=== PATIENT | female | born 1960 | race African-American/Black ===

== ENCOUNTER 2019-08-22 12:18 | Inpatient (IN) | payer OTHER ==
[~2019-08-22] VITALS: Ht 160 cm; Wt 58.5 kg
--- NOTE | 2019-08-22 12:22 | NUR ---
ryder, from dialysis center, c/o sharp chest pain since yesterday 10/21 ps, radiating to back, pain in inspiration last HD , to ER bed 9, hooked to monitor, changed to hosp gown, warm blanket provided, awaiting md cooper.
--- NOTE | 2019-08-22 12:26 | NUR ---
DR ARZOLA AT BEDSIDE FOR EVAL.
[2019-08-22] MEDS ORDERED: ASPIRIN 325 MG TABLET PO ONE (12:30)
[2019-08-22] MEDS ORDERED: ASPIRIN 325 MG TABLET ONE (12:40)
[2019-08-22 12:50] LABS: WHITE BLOOD COUNT (AUTO) 3.6 K/uL (4.3-11.0)
[2019-08-22 12:51] LABS: BASOPHILS % (AUTO) 1.2 % (0.0-2.0); EOSINOPHILS % (AUTO) 3.5 % (0.0-6.0); HEMATOCRIT 36 % (33-45); HEMOGLOBIN 11.1 g/dL (11.5-14.8); LYMPHOCYTES # (AUTO) 0.9 /CMM (0.8-4.8); MEAN CORPUSCULAR HGB CONC 31 g/dl (31.0-36.0); MEAN CORPUSCULAR VOLUME 89 fL (82-100); MONOCYTES # (AUTO) 0.6 /CMM (0.1-1.30); MONOCYTES % (AUTO) 16.9 % (2.0-12.0); NEUTROPHILS % (AUTO) 54.4 % (43.0-81.0); PLATELET COUNT (AUTO) 179 /CMM (150-450); RED BLOOD CELL COUNT(AUTO) 3.99 MIL/uL (4.0-5.2)
[2019-08-22 12:57] LABS: CALCIUM, SERUM 8.8 mg/dL (8.5-10.1); CARBON DIOXIDE 27 mmol/L (21-32); CHLORIDE 102 mmol/L (98-107); GLUCOSE 166 mg/dL (74-106); SODIUM SERUM 136 mmol/L (136-145); UREA NITROGEN, BLOOD 53 mg/dL (7-18)
[2019-08-22 12:59] LABS: CREATININE 7.8 mg/dL (0.6-1.3)
[2019-08-22] MEDS ORDERED: INSULIN REGULAR, HUMAN 100 UNIT/ML 10 ML VIAL IV ONE (13:00)
[2019-08-22] MEDS ORDERED: SODIUM BICARBONATE SYR 50 MEQ/50 ML DISP.SYRIN IV ONE (13:00)
[2019-08-22] MEDS ORDERED: SODIUM POLYSTYRENE SULFONATE 15 G/60 ML BOTTLE PO ONE (13:00)
[2019-08-22] MEDS ORDERED: DEXTROSE 50%-WATER 50 ML DISP.SYRIN IV ONE (13:00)
[2019-08-22 13:10] LABS: ALANINE AMINOTRANSFERASE 19 U/L (12-78); ALBUMIN 3.2 g/dL (3.4-5.0); ALKALINE PHOSPHATASE 144 U/L (46-116); ASPARTATE AMINOTRANSFERASE 40 U/L (15-37); B-TYPE NATRIURETIC PEPTIDE 1761 PG/ML (0-125); BILIRUBIN,DIRECT 0.1 mg/dL (0.0-0.2); BILIRUBIN,TOTAL 0.4 mg/dL (0.2-1.0); TOTAL PROTEIN, SERUM 9.1 g/dL (6.4-8.2)
[2019-08-22] MEDS ORDERED: SODIUM POLYSTYRENE SULFONATE 15 G/60 ML BOTTLE ONE ×2 (13:10→13:23)
[2019-08-22] MEDS ORDERED: INSULIN REGULAR, HUMAN 100 UNIT/ML 10 ML VIAL ONE (13:10)
[2019-08-22] MEDS ORDERED: DEXTROSE 50%-WATER 50 ML DISP.SYRIN ONE (13:10)
[2019-08-22] MEDS ORDERED: SODIUM BICARBONATE SYR 50 MEQ/50 ML DISP.SYRIN ONE (13:10)
--- NOTE | 2019-08-22 13:55 | NUR ---
DR. BEASLEY FROM [facility] CALLED. PT HAS BEEN ACCEPTED. AWAITING ACCEPTANCE INFORMATION FROM CM.
--- NOTE | 2019-08-22 14:48 | NUR ---
GOT OFF THE PHONE WITH JEREMIAS HARO FROM [facility]. PT HAS BEEN ACCEPTED TO [facility]. SHE WILL CALL BACK WITHIN 90 MINUTES WITH TRANSFER INFO. IF NO INFO PROVIDED BY 1600 WILL ADMIT HERE.
--- NOTE | 2019-08-22 15:26 | NUR ---
LIZABETH [phone].
--- NOTE | 2019-08-22 16:50 | NUR ---
patient had bowel movement, cleaned patient, pull-up placed, changed hosp gown and linens. hooked to monitor. will contiue to monitor accordingly.
--- NOTE | 2019-08-22 17:05 | NUR ---
CALLED HOUSE SUP FOR TELE BED.
--- NOTE | 2019-08-22 17:20 | NUR ---
BED ASSIGNED: 310-1
--- NOTE | 2019-08-22 17:34 | NUR ---
REPORT GIVEN TO JHONATAN CARMONA OF TELE UNIT
--- NOTE | 2019-08-22 17:42 | NUR ---
Luh hernandez in [facility] - 08/22/19 at 1745 by JHONY PT CAME FROM [facility] [phone] SPOKE TO SARIKA MONSALVE
--- NOTE | 2019-08-22 17:46 | NUR ---
PT CAME FROM [facility] [phone] SPOKE TO SARIKA DEALER ANALYST ADDRESS: [id number] [place] [address]
[2019-08-22] MEDS ORDERED: ONDANSETRON HCL/PF 4 MG/2 ML VIAL IVP PRN (18:00)
[2019-08-22] MEDS ORDERED: DEXTROSE 50%-WATER 50 ML DISP.SYRIN IV PRN (18:00)
[2019-08-22] MEDS ORDERED: TEMAZEPAM 15 MG CAPSULE PO PRN (18:00)
[2019-08-22] MEDS ORDERED: MORPHINE SULFATE INJ 2 MG/ML DISP.SYRIN IV PRN (18:00)
[2019-08-22] MEDS ORDERED: MAG HYDROX/AL HYDROX/SIMETH 30 ML UDC PO PRN (18:00)
[2019-08-22] MEDS ORDERED: MAGNESIUM HYDROXIDE 30 ML UDC PO PRN (18:00)
[2019-08-22] MEDS ORDERED: Z GUARD REMEDY 2 OZ OINT TP PRN (18:00)
[2019-08-22] MEDS ORDERED: NITROGLYCERIN 0.4 MG/TAB BOTTLE SL PRN (18:00)
[2019-08-22] MEDS ORDERED: HYDROCODONE/APAP 5/325MG 1 EACH TABLET PO PRN (18:00)
[2019-08-22] MEDS ORDERED: ACETAMINOPHEN 325 MG TABLET PO PRN (18:00)
[2019-08-22] MEDS ORDERED: LEVE500T9 PO (18:06)
[2019-08-22] MEDS ORDERED: DIPH50CA4 PO (18:06)
[2019-08-22] MEDS ORDERED: GABA-532 PO (18:06)
[2019-08-22] MEDS ORDERED: DOLU50TA PO (18:06)
[2019-08-22] MEDS ORDERED: BRIM5DRO3 LEFTEYE (18:06)
[2019-08-22] MEDS ORDERED: LATA2.5D7 OP (18:06)
[2019-08-22] MEDS ORDERED: BUPR1FIL3 SL (18:06)
[2019-08-22] MEDS ORDERED: TIMO5DRO31 OP (18:06)
[2019-08-22] MEDS ORDERED: METO-295 PO (18:06)
[2019-08-22] MEDS ORDERED: SENN-175 PO (18:06)
[2019-08-22] MEDS ORDERED: FOLI0.8C PO (18:06)
[2019-08-22] MEDS ORDERED: CHOL200074 PO (18:06)
[2019-08-22] MEDS ORDERED: DARU1TAB PO (18:06)
--- NOTE | 2019-08-22 19:00 | NUR ---
CUSTODIAL SUPERVISOR NOTES Received pt from MATHEW Almendarez. Pt came to Tele 310-1 around 1800. On RA, with complaints of pain on chest. COVID test swab done by the outgoing RN. Put on tele monitor, NSR noted. VTE score of 4, put on SCD BLE as appropriate. Reviewed chart for orders. On fall and aspiration precautions. Call light within easy reach. Will continue to monitor accordingly.
[2019-08-22 20:00] VITALS: BP 141/68
--- NOTE | 2019-08-22 20:12 | NUR ---
RN NOTES Patient claimed she is taking Orange 10mg BID and Benadryl PO unrecalled dosage. Verified to patient about her allergic to acetaminophen and tramadol. Per patient, she had taken acetaminophen before without any problem but with tramadol patient claimed she had disorientation. Will relay to MD for med recon.
[2019-08-22 20:43] VITALS: BP 141/68
[2019-08-22] MEDS: HYDROCODONE/APAP 10/325MG 1 EA TABLET PO PRN (21:09)
[2019-08-22] MEDS: diphenhydrAMINE HCL 25 MG CAPSULE PO PRN (21:09)
[2019-08-22] MEDS: BLOOD SUGAR DIAGNOSTIC 1 EACH STRIP IN SCH (21:10)
[2019-08-22] MEDS: INSULIN REGULAR, HUMAN 100 UNIT/ML 3 ML VIAL SQ PRN (21:22)
[2019-08-23] VITALS: BP 141/76
--- NOTE | 2019-08-23 01:03 | NUR ---
RN NOTES Endorsed to MATHEW Burr for BRUNO.
--- NOTE | 2019-08-23 01:05 | NUR ---
RN NOTES RECEIVED REPORT FROM MATHEW CLEMENT. ASSESSED PATIENT. ASLEEP RESTING COMFORTABLY, SAFETY MEASURES INPLACE ASPIRATION PRECAUTION EMPHASIZED. CALL LIGHT WITHIN EASY REACH. ALL NEEDS ANTICIPATED. WILL CONTINUE TO MONITOR ACCORDINGLY.
[2019-08-23 04:01] VITALS: BP 144/76
[2019-08-23 05:56] LABS: BASOPHILS % (AUTO) 0.7 % (0.0-2.0); EOSINOPHILS % (AUTO) 2.4 % (0.0-6.0); HEMATOCRIT 32 % (33-45); HEMOGLOBIN 9.8 g/dL (11.5-14.8); LYMPHOCYTES # (AUTO) 1.2 /CMM (0.8-4.8); MEAN CORPUSCULAR HGB CONC 30 g/dl (31.0-36.0); MEAN CORPUSCULAR VOLUME 90 fL (82-100); MONOCYTES # (AUTO) 0.9 /CMM (0.1-1.30); MONOCYTES % (AUTO) 12.1 % (2.0-12.0); NEUTROPHILS # (AUTO) 4.8 /CMM (1.8-8.9); NEUTROPHILS % (AUTO) 67.8 % (43.0-81.0); PLATELET COUNT (AUTO) 155 /CMM (150-450); RED BLOOD CELL COUNT(AUTO) 3.58 MIL/uL (4.0-5.2); WHITE BLOOD COUNT (AUTO) 7.1 K/uL (4.3-11.0)
--- NOTE | 2019-08-23 06:12 | NUR ---
RN NOTES ABLE TO REST AND SLEPT WITH LONG INTERVALS. ASLEEP RESTING COMFORTABLY, SAFETY MEASURES IN PLACE ASPIRATION PRECAUTION EMPHASIZED. CALL LIGHT WITHIN EASY REACH. ALL NEEDS ANTICIPATED. WILL WILL ENDORSE TO AM NURSE FOR CONTINUITY OF CARE.
[2019-08-23 06:28] LABS: CARBON DIOXIDE 24 mmol/L (21-32); CHLORIDE 101 mmol/L (98-107); GLUCOSE 153 mg/dL (74-106); MAGNESIUM 2.9 mg/dL (1.8-2.4); PHOSPHORUS 5.8 mg/dL (2.5-4.9); POTASSIUM 4.7 mmol/L (3.5-5.1); SODIUM SERUM 135 mmol/L (136-145); UREA NITROGEN, BLOOD 60 mg/dL (7-18)
[2019-08-23 06:31] LABS: HDL CHOLESTEROL 36 mg/dL (40-60); LDL 74 mg/dL (0-99); THYROID STIMULATING HORMONE 0.449 uIU/mL (0.358-3.74); TRIGLYCERIDES 45 mg/dL (30-150)
[2019-08-23 06:33] LABS: CREATININE 8.6 mg/dL (0.6-1.3)
[2019-08-23] MEDS: BLOOD SUGAR DIAGNOSTIC 1 EACH STRIP IN SCH ×4 (07:01→21:59)
[2019-08-23] MEDS: HYDROCODONE/APAP 10/325MG 1 EA TABLET PO PRN (07:07)
[2019-08-23 07:32] LABS: CHOLESTEROL 113 mg/dL (<200)
[2019-08-23] MEDS: PANTOPRAZOLE 40 MG TABLET.DR PO SCH (07:51)
[2019-08-23 08:00] VITALS: BP 158/80
--- NOTE | 2019-08-23 08:10 | NUR ---
DARIEL RN OPENING NOTES RECEIVED PT RESTING . ALERT AND ORIENTED X3. PT IS ON RA. PT'S SKIN INTACT. PT LAC FLUSHED WELL. BED IN LOWEST POSITION. RAILS ARE UP X2. CALL LIGHT WITHIN REACH. WILL CONTINUE TO MONITOR
[2019-08-23] MEDS: CARVEDILOL 6.25 MG TABLET PO SCH ×2 (08:52→21:26)
[2019-08-23] MEDS: HEPARIN SODIUM, PORCINE 5000 UNITS/1 ML VIAL SQ SCH ×2 (08:58→21:37)
--- NOTE | 2019-08-23 09:00 | NUR ---
DARIEL RN NOTES SIGNED CONSENT FOR HEMO DIALYSIS, PLACED IN CHART. DIALYSIS NURSE ON THE BED SITE.
[2019-08-23] MEDS: ASPIRIN 81 MG TAB.CHEW PO SCH (09:14)
--- NOTE | 2019-08-23 11:30 | NUR ---
DARIEL RN NOTES DIALYSIS NURSE TOOK 2 L OUT
[2019-08-23 12:00] VITALS: BP 151/74
[2019-08-23] MEDS ORDERED: diphenhydrAMINE HCL ELIX 25 MG/10 ML UDC ONE (12:36)
--- NOTE | 2019-08-23 14:06 | NUR ---
DARIEL RN NOTES PT DANIEL IS ON THE BED SITE
[2019-08-23 16:00] VITALS: BP 139/68
[2019-08-23] MEDS: HYDROCODONE/APAP 5/325MG 1 EACH TABLET PO PRN (17:55)
[2019-08-23] MEDS: GLUCERNA SHAKE 237 ML CAN PO SCH (18:19)
--- NOTE | 2019-08-23 18:26 | NUR ---
DARIEL RN CLOSING NOTES PT IS RESTING IN BED. ALERT AND ORIENTED X3. PT IS ON RA. PT'S SKIN INTACT. PT LAC FLUSHED WELL. BED IN LOWEST POSITION. RAILS ARE UP X2. CALL LIGHT WITHIN REACH. SAFETY MEASUREMENTS ARE IMPLEMENTED. PT ALL NEEDS ARE MET. PT IS CLEAN AND DRY. NO ACUTE CHANGES ON MY SHIFT. WILL ENDORSE TO NIGHTSHIFT NURSE FOR BRUNO.
--- NOTE | 2019-08-23 19:40 | NUR ---
TROUBLE LOCATOR TEST DESK OPENING NOTES PATIENT RECEIVED RESTING IN BED COMFORTABLY; AWAKE, A/OX2-3; BREATHING EVEN AND UNLABORED; PATIENT TOLERATING ROOM AIR WELL; NO SOB NOTED; TELE MONITOR ATTACHED, READS NSR 88BPM; L EYE BLINDNESS; PATIENT REQUESTING TO SPEAK WITH HER DAUGHTER; L AC # 22 SL INTACT AND PATENT; FLUSHING WELL; NO S/S OF REDNESS OR INFILTRATION NOTED; R CHEST PORTACATH IN PLACE; PER AM SHIFT, BLOOD SUGAR HAS BEEN 80S - 120S, NO INSULIN COVERAGE NEEDED; WILL MONITOR; ISOLATION PRECAUTIONS IMPLEMENTED; SAFETY PRECAUTIONS IMPLEMENTED; BED LOCKED IN LOW POSITION; BED LOCKED IN LOW POSITION; SIDE RAILS X2; CALL LIGHT WITHIN REACH; WILL CONT TO MONITOR
[2019-08-23 20:00] VITALS: BP_SYST 116; BP_SYST 139; BP_DIAS 73; BP_DIAS 83
[2019-08-24] VITALS (7 sets, daily range): BP systolic 145–167; BP diastolic 71–85
[2019-08-24] MEDS: HYDROCODONE/APAP 5/325MG 1 EACH TABLET PO PRN ×3 (02:56→18:20)
--- NOTE | 2019-08-24 03:02 | NUR ---
VEHICLE ASSEMBLY INSPECTOR NOTES PATIENT COMPLAINT OF GENERALIZED BODY PAINS 10/21; PATIENT REQUESTED TO USE THE RESTROOM; TOLERATED WALKING TO RESTROOM WELL, WITH STAND BY ASSIST AND WALKER; PATIENT REQUESTING NORCO PO FOR PAIN MANAGEMENT; VITAL SIGNS STABLE; NORCO ADMINISTERED PER MD ORDER; WILL CONT TO MONITOR
[2019-08-24 06:53] LABS: BASOPHILS % (AUTO) 0.9 % (0.0-2.0); EOSINOPHILS % (AUTO) 7.1 % (0.0-6.0); HEMATOCRIT 30 % (33-45); HEMOGLOBIN 9.5 g/dL (11.5-14.8); LYMPHOCYTES # (AUTO) 0.8 /CMM (0.8-4.8); LYMPHOCYTES % (AUTO) 26.5 % (20.0-44.0); MEAN CORPUSCULAR HGB CONC 32 g/dl (31.0-36.0); MEAN CORPUSCULAR VOLUME 88 fL (82-100); MONOCYTES # (AUTO) 0.5 /CMM (0.1-1.30); NEUTROPHILS # (AUTO) 1.4 /CMM (1.8-8.9); NEUTROPHILS % (AUTO) 47.5 % (43.0-81.0); PLATELET COUNT (AUTO) 160 /CMM (150-450); RED BLOOD CELL COUNT(AUTO) 3.43 MIL/uL (4.0-5.2)
[2019-08-24] MEDS: BLOOD SUGAR DIAGNOSTIC 1 EACH STRIP IN SCH ×4 (07:00→21:21)
[2019-08-24 07:14] LABS: ALANINE AMINOTRANSFERASE 15 U/L (12-78); ALBUMIN 2.7 g/dL (3.4-5.0); ALKALINE PHOSPHATASE 111 U/L (46-116); ASPARTATE AMINOTRANSFERASE 16 U/L (15-37); BILIRUBIN,TOTAL 0.2 mg/dL (0.2-1.0); CALCIUM, SERUM 8.3 mg/dL (8.5-10.1); CARBON DIOXIDE 28 mmol/L (21-32); CHLORIDE 99 mmol/L (98-107); GLUCOSE 86 mg/dL (74-106); MAGNESIUM 2.5 mg/dL (1.8-2.4); PHOSPHORUS 5.4 mg/dL (2.5-4.9); SODIUM SERUM 134 mmol/L (136-145); TOTAL PROTEIN, SERUM 7.7 g/dL (6.4-8.2); UREA NITROGEN, BLOOD 41 mg/dL (7-18)
--- NOTE | 2019-08-24 07:34 | NUR ---
CULINARY DIRECTOR CLOSING NOTES PATIENT RESTING IN BED COMFORTABLY; A/OX2-3; BREATHING EVEN AND UNLABORED; NO SOB NOTED; TOLERATING ROOM AIR WELL; TELE MONITOR READS NSR; ALL NEEDS RENDERED; ISOLATION PRECAUTIONS MAINTAINED; PATIENT ABLE TO MAKE NEEDS KNOWN; SAFETY PRECAUTIONS IMPLEMENTED; BED LOCKED IN LOW POSITION; SIDE RAILS X2; CALL LIGHT WITHIN REACH; WILL ENDORSE BRUNO TO ONCOMING SHIFT
[2019-08-24] MEDS: diphenhydrAMINE HCL 25 MG CAPSULE PO PRN (08:05)
[2019-08-24] MEDS: CARVEDILOL 6.25 MG TABLET PO SCH ×3 (08:05→21:02)
[2019-08-24] MEDS: PANTOPRAZOLE 40 MG TABLET.DR PO SCH (08:06)
[2019-08-24] MEDS: ASPIRIN 81 MG TAB.CHEW PO SCH (08:06)
[2019-08-24] MEDS: GLUCERNA SHAKE 237 ML CAN PO SCH ×2 (08:08→17:00)
[2019-08-24] MEDS ORDERED: METOCLOPRAMIDE HCL 10 MG TABLET PO PRN (09:00)
--- NOTE | 2019-08-24 09:20 | NUR ---
cassandra concrete block mason: notes nica (pharmacist) called and informed me if family can bring her hiv meds. informed nica that she came from [facility]. [facility] notified, spoke to phyllis and will bring her hiv meds this afternoon. Addendum: 08/24/19 at 0923 by HESHAM TOBIAS SENIOR POLICY ASSOCIATE correction on above pharmacist name: spoke to dereck instead of nica.
[2019-08-24] MEDS: GABAPENTIN 100 MG CAPSULE PO SCH ×2 (09:24→17:20)
[2019-08-24] MEDS: CHOLECALCIFEROL 1,000 UNIT TABLET (VIT D3) PO SCH (09:24)
[2019-08-24] MEDS: LEVETIRACETAM (250 MG) 250 MG TABLET PO SCH ×2 (09:24→21:02)
[2019-08-24] MEDS: FOLIC ACID 1 MG TABLET PO SCH (09:24)
[2019-08-24] MEDS: HEPARIN SODIUM, PORCINE 5000 UNITS/1 ML VIAL SQ SCH ×2 (09:24→21:03)
--- NOTE | 2019-08-24 09:25 | NUR ---
m/s finished goods inspector: notes given the balance of 6.25mg of coreg. pt received coreg 6.25mg earlier today.
[2019-08-24] MEDS ORDERED: CARVEDILOL 6.25 MG TABLET PO ONE (09:30)
--- NOTE | 2019-08-24 10:00 | NUR ---
m/s technology engineer: notes offered am care, but pt wants it later. instructed to call for assistance. will continue to monitor.
[2019-08-24] MEDS: TIMOLOL MALEATE/PF 0.25% 1 DROP DROPERETTE EACHEYE SCH ×2 (11:45→17:23)
[2019-08-24] MEDS: BRIMONIDINE TARTRATE OPHT SOLN 5 ML BOTTLE LEFTEYE SCH (11:45)
--- NOTE | 2019-08-24 12:27 | NUR ---
m/s bowl sander: notes c/o 08/20 generalized, medicated with norco 1 tab po as ordered. instructed to call for assistance. needs attended. will continue to monitor.
--- NOTE | 2019-08-24 13:27 | NUR ---
m/s plant attendant or assistant operator: notes pt sounds asleep. no distress noted. call light within reach.
[2019-08-24] MEDS: TIVICAY 50 MG PO SCH (15:19)
[2019-08-24] MEDS: PREZCOBIX PO SCH (15:19)
--- NOTE | 2019-08-24 16:00 | NUR ---
m/s sound mixer: notes afternoon care rendered by transportation job titles. kept clean and dry.
--- NOTE | 2019-08-24 18:20 | NUR ---
m/s senior php developer: notes c/o 08/20 generalized, medicated with norco 1 tab po as ordered. instructed to call for assistance. needs attended. will continue to monitor.
--- NOTE | 2019-08-24 19:00 | NUR ---
m/s parts manager: notes bedside report given to talon (rn) for continuity of care.
--- NOTE | 2019-08-24 19:37 | NUR ---
FURNITURE RESTORER OPENING NOTES RECEIVED PATIENT RESTING IN BED COMFORTABLY; A/OX2-3; BREATHING EVEN AND UNLABORED; NO SOB NOTED; PATIENT TOLERATING ROOM AIR WELL; TELE MONITOR READS NSR; L AC # 22 SL INTACT AND PATENT; R CHEST HD CATH; ISOLATION PRECAUTIONS MAINTAINED, STILL AWAITING COVID RESULTS; PER AM SHIFT, AWAITING FOR COVID RESULTS PRIOR TO RETURN TO BOARD AND CARE; SAFETY PRECAUTIONS IMPLEMENTED; BED LOCKED IN LOW POSITION; SIDE RAILSX2; CALL LIGHT WITHIN REACH; WILL CONT TO MONITOR
[2019-08-24] MEDS: SENNOSIDES 8.6 MG TABLET PO SCH (21:02)
[2019-08-24] MEDS: MUPIROCIN OINT 2% 22 GM TUBE SCH (21:03)
[2019-08-24] MEDS: LATANOPROST EYE DROP 0.005% 2.5 ML BOTTLE OP SCH (21:22)
[2019-08-24] MEDS: diphenhydrAMINE HCL 50 MG CAPSULE PO PRN (22:01)
--- NOTE | 2019-08-24 22:30 | NUR ---
BAKERY HELPER NOTES PATIENT REQUESTING BENADRYL D/T ITCHING; PATIENT REPORTED HER HEAD FEELS ITCHY; BENADRYL GIVEN ADMINISTERED PER MD ORDER; WILL CONT TO MONITOR
[2019-08-25] VITALS: BP 151/77
[2019-08-25 04:00] VITALS: BP 120/68
[2019-08-25] MEDS: BLOOD SUGAR DIAGNOSTIC 1 EACH STRIP IN SCH ×4 (06:31→21:49)
--- NOTE | 2019-08-25 06:40 | NUR ---
MELTER SUPERVISOR OPEN HEARTH FURNACE CLOSING NOTES PATIENT RESTING IN BED COMFORTABLY; A/OX2-3; PATIENT SLEEPY BUT EASILY AROUSABLE TO NAME AND LIGHT STIMULI; BREATHING EVEN AND UNLABORED; NO SOB NOTED; TOLERATING ROOM AIR WELL; TELE MONITOR READS NSR; ALL NEEDS RENDERED; ISOLATION PRECAUTIONS MAINTAINED; PATIENT ABLE TO MAKE NEEDS KNOWN; SAFETY PRECAUTIONS IMPLEMENTED; BED LOCKED IN LOW POSITION; SIDE RAILS X2; CALL LIGHT WITHIN REACH; WILL ENDORSE BRUNO TO ONCOMING SHIFT
[2019-08-25] MEDS: HYDROCODONE/APAP 5/325MG 1 EACH TABLET PO PRN ×3 (07:46→21:04)
[2019-08-25] MEDS: PANTOPRAZOLE 40 MG TABLET.DR PO SCH (07:46)
[2019-08-25 08:00] VITALS: BP 160/76
--- NOTE | 2019-08-25 08:00 | NUR ---
tele support services manager: initial assessment received pt in bed awake, a/ox3. pt for d'c planning, awaiting for covid result. pt for hd tx today and made aware. no distress noted. will continue to monitor.
[2019-08-25] MEDS: PREZCOBIX PO SCH (08:26)
[2019-08-25] MEDS: CHOLECALCIFEROL 1,000 UNIT TABLET (VIT D3) PO SCH (08:26)
[2019-08-25] MEDS: MUPIROCIN OINT 2% 22 GM TUBE SCH ×2 (08:27→21:56)
[2019-08-25] MEDS: ASPIRIN 81 MG TAB.CHEW PO SCH (08:27)
[2019-08-25] MEDS: TIVICAY 50 MG PO SCH (08:27)
[2019-08-25] MEDS: FOLIC ACID 1 MG TABLET PO SCH (08:27)
[2019-08-25] MEDS: GABAPENTIN 100 MG CAPSULE PO SCH ×2 (08:27→17:04)
[2019-08-25] MEDS: LEVETIRACETAM (250 MG) 250 MG TABLET PO SCH ×2 (08:27→21:21)
[2019-08-25] MEDS: CARVEDILOL 6.25 MG TABLET PO SCH ×2 (08:28→21:22)
[2019-08-25] MEDS: HEPARIN SODIUM, PORCINE 5000 UNITS/1 ML VIAL SQ SCH ×2 (08:29→21:26)
[2019-08-25] MEDS: BRIMONIDINE TARTRATE OPHT SOLN 5 ML BOTTLE LEFTEYE SCH (08:34)
[2019-08-25] MEDS: GLUCERNA SHAKE 237 ML CAN PO SCH ×2 (08:34→16:30)
[2019-08-25] MEDS: TIMOLOL MALEATE/PF 0.25% 1 DROP DROPERETTE EACHEYE SCH ×2 (08:36→17:00)
[2019-08-25] MEDS: hydrALAZINE HCL 50 MG TABLET PO SCH ×3 (10:30→17:28)
--- NOTE | 2019-08-25 10:30 | NUR ---
tele loft worker apprentice: notes hydralazine held due to hd tx today.
--- NOTE | 2019-08-25 10:40 | NUR ---
m/s protective service specialist: notes covid resulted which is negative. cn made aware. pt made aware.
--- NOTE | 2019-08-25 13:17 | NUR ---
m/s poultry veterinarian: notes hydralazine held due to hd tx today.
--- NOTE | 2019-08-25 13:30 | NUR ---
m/s job compositor: notes pt's correctional casework specialist called and wanted to speak with pt, call transfer to room.
--- NOTE | 2019-08-25 13:41 | NUR ---
m/s document improvement specialist: notes phyllis (admin of [facility]) called and wanted to speak with pt, call transfer to pt.
--- NOTE | 2019-08-25 15:30 | NUR ---
m/s molding press operator: notes ede (hd nurse) here and started treatment at this time. call light within reach. will continue to monitor.
[2019-08-25 16:00] VITALS: BP 144/76
--- NOTE | 2019-08-25 17:25 | NUR ---
m/s fast food sales assistant: notes hd completed with 2 liters removed per ede (hd nurse). dinner served. due meds given. needs attended. will continue to monitor.
--- NOTE | 2019-08-25 19:10 | NUR ---
m/s technical training manager: notes report given to josias (megan) for continuity of care.
--- NOTE | 2019-08-25 19:48 | NUR ---
MSRN RECEIVED FULLY AWAKE, APPEARS TO BE IN GOOD SPIRITS. NO COMPLAINTS MADE AT THIS TIME. NO NEEDS MADE. APPEARS COMFORTABLE. REMINDED TO CALL STAFF FOR ANY ASSISTANCE OR DISCOMFORTS, CALL LIGHT WITHIN REACH.SAFETY PRECAUTIONS EMPHASIZED.
[2019-08-25 20:00] VITALS: BP 145/83
[2019-08-25] MEDS: LATANOPROST EYE DROP 0.005% 2.5 ML BOTTLE OP SCH (21:28)
[2019-08-25] MEDS: SENNOSIDES 8.6 MG TABLET PO SCH (21:49)
--- NOTE | 2019-08-25 22:00 | NUR ---
MSRN DUE MEDS ADMINISTERED, BS WAS 131, COVERED WITH 2 UNITS OF REGULAR INSULIN SQ PER SLIDING SCALE.. SNACKS PROVIDED.
[2019-08-25] MEDS: INSULIN REGULAR, HUMAN 100 UNIT/ML 3 ML VIAL SQ PRN (22:08)
[2019-08-26] MEDS: HYDROCODONE/APAP 5/325MG 1 EACH TABLET PO PRN ×4 (03:17→22:52)
--- NOTE | 2019-08-26 03:19 | NUR ---
MSRN VERBALIZES LEFT EYE PAIN,LEVEL NINE NORCO ADMINISTERED ORDERED. BEDREST INSTRUCTED
[2019-08-26] MEDS: INSULIN REGULAR, HUMAN 100 UNIT/ML 3 ML VIAL SQ PRN ×2 (06:38→16:39)
--- NOTE | 2019-08-26 06:54 | NUR ---
MORN BLOOD SUGAR WAS 142 COVERED WITH REGULAR INSULIN SQ PER SLIDING SCALE.
--- NOTE | 2019-08-26 07:40 | NUR ---
MS RN OPENING NOTE PATIENT IN BED RESTING COMFORTABLY. PATIENT IN NO ACUTE DISTRESS. NO SOB NOTED. PATIENT BREATHING IS EVEN AND UNLABORED. PATIENT BED ALARM IS ON. SAFETY PRECAUTIONS IN PLACE. PATIENT BLOOD SUGAR WAS CHECKED AT 142 PER GRIFFIN CARMONA AND COVERED WITH 2 UNITS REGULAR INSULIN FOR 0730 AM CHECK. PATIENT BED IS LOCKED AND IN LOWEST POSITION. CALL LIGHT WITHIN REACH. WILL CONTINUE TO MONITOR.
[2019-08-26] MEDS: BLOOD SUGAR DIAGNOSTIC 1 EACH STRIP IN SCH ×4 (07:43→22:08)
[2019-08-26 07:53] LABS: BASOPHILS % (AUTO) 0.7 % (0.0-2.0); EOSINOPHILS % (AUTO) 5.8 % (0.0-6.0); HEMATOCRIT 29 % (33-45); LYMPHOCYTES # (AUTO) 0.8 /CMM (0.8-4.8); LYMPHOCYTES % (AUTO) 30.3 % (20.0-44.0); MEAN CORPUSCULAR HGB CONC 31 g/dl (31.0-36.0); MEAN CORPUSCULAR VOLUME 89 fL (82-100); MONOCYTES # (AUTO) 0.4 /CMM (0.1-1.30); MONOCYTES % (AUTO) 17.5 % (2.0-12.0); NEUTROPHILS # (AUTO) 1.1 /CMM (1.8-8.9); NEUTROPHILS % (AUTO) 45.7 % (43.0-81.0); PLATELET COUNT (AUTO) 144 /CMM (150-450); RED BLOOD CELL COUNT(AUTO) 3.27 MIL/uL (4.0-5.2); WHITE BLOOD COUNT (AUTO) 2.5 K/uL (4.3-11.0)
[2019-08-26 08:00] VITALS: BP 153/72
[2019-08-26 08:01] LABS: CALCIUM, SERUM 7.7 mg/dL (8.5-10.1); CREATININE 6.4 mg/dL (0.6-1.3); MAGNESIUM 2.6 mg/dL (1.8-2.4); PHOSPHORUS 4.3 mg/dL (2.5-4.9); POTASSIUM 4.1 mmol/L (3.5-5.1)
[2019-08-26] MEDS: BRIMONIDINE TARTRATE OPHT SOLN 5 ML BOTTLE LEFTEYE SCH (08:17)
[2019-08-26] MEDS: MUPIROCIN OINT 2% 22 GM TUBE SCH ×2 (08:17→20:49)
[2019-08-26] MEDS: PREZCOBIX PO SCH (08:20)
[2019-08-26] MEDS: TIVICAY 50 MG PO SCH (08:20)
[2019-08-26] MEDS: CARVEDILOL 6.25 MG TABLET PO SCH ×2 (08:21→20:51)
[2019-08-26] MEDS: CHOLECALCIFEROL 1,000 UNIT TABLET (VIT D3) PO SCH (08:21)
[2019-08-26] MEDS: LEVETIRACETAM (250 MG) 250 MG TABLET PO SCH ×2 (08:21→20:51)
[2019-08-26] MEDS: ASPIRIN 81 MG TAB.CHEW PO SCH (08:21)
[2019-08-26] MEDS: hydrALAZINE HCL 50 MG TABLET PO SCH ×3 (08:21→16:26)
[2019-08-26] MEDS: FOLIC ACID 1 MG TABLET PO SCH (08:22)
[2019-08-26] MEDS: HEPARIN SODIUM, PORCINE 5000 UNITS/1 ML VIAL SQ SCH ×2 (08:22→20:53)
[2019-08-26] MEDS: PANTOPRAZOLE 40 MG TABLET.DR PO SCH (08:22)
[2019-08-26] MEDS: GABAPENTIN 100 MG CAPSULE PO SCH ×2 (08:22→16:37)
[2019-08-26] MEDS: GLUCERNA SHAKE 237 ML CAN PO SCH ×2 (08:28→16:27)
[2019-08-26] MEDS: TIMOLOL MALEATE/PF 0.25% 1 DROP DROPERETTE EACHEYE SCH ×2 (09:00→16:23)
--- NOTE | 2019-08-26 10:28 | NUR ---
MS RN NOTE TIMOPTIC EYE DROPS NOT GIVEN DUE TO MEDICATION NOT AVAILABLE. PER PHARMACY THALIA EYEDROPS SHOULD BE BEDSIDE OR PATIENT CASSETTE. TIMOPTIC EYE DROPS NOT IN PATIENT BEDSIDE, DRAWER, OR PATIENT CASETTE. INFORMED PHARMACY THALIA AND PER THALIA WE DONT HAVE EXTRA EYEDROP MEDICATIONS IN PHARMACY. PER THALIA TSE NOT TO GIVE TODAY DUE TO PHARMACY UNABLE TO PROVIDE EYE DROPS.
--- NOTE | 2019-08-26 11:31 | NUR ---
MS RN NOTE PATIENT BLOOD SUGAR IS 82. NO INSULIN COVERAGE NEEDED PER PROTOCOL.
--- NOTE | 2019-08-26 12:17 | NUR ---
MS RN NOTE PATIENT COMPLAINS OF GENERALIZED BODY ITCHING, PATIENT REQUESTING BENADRYL. BENADRYL PRN ORDERED TO BE GIVEN.
[2019-08-26] MEDS: diphenhydrAMINE HCL 50 MG CAPSULE PO PRN (12:26)
[2019-08-26 16:00] VITALS: BP 118/69
--- NOTE | 2019-08-26 16:24 | NUR ---
MS RN NOTE TIMOPTIC EYE DROPS 1700 DOSE NOT GIVEN DUE TO MEDICATION NOT AVAILABLE IN PHARMACY TO PROVIDE FOR ADMINISTRATION. PATIENT CURRENTLY UNDERGOING DIALYSIS AT THIS TIME. HELD BP MED HYDRALAZINE 1700 DOSE DUE TO DIALYSIS.
--- NOTE | 2019-08-26 18:00 | NUR ---
MS RN NOTE PATIENT COMPLAINED OF VAGINAL DISCHARGE. UPON ASSESSING PERINEAL AREA THERE WAS NO VISIBLE DISCHARGE. NOTIFIED EPIC EXCHANGE FOR MURIEL PATEL. WILL ENDORSE TO ENGINEERING PSYCHOLOGIST FOR FOLLOW UP IF NO CALL RETURNED. PER CHARGE NURSE DAVID ORDER FOR UA WAS PLACED.
--- NOTE | 2019-08-26 18:40 | NUR ---
MS RN NOTE WAS ABLE TO SPEAK TO MURIEL PATEL ABOUT PATIENT COMPLAINT OF VAGINAL DISCHARGE. PER MURIEL PATEL OKAY FOR MD ORDER OF UA ALREADY PLACE AND ADDITIONAL MD ORDER FOR URINE CULTURE.
--- NOTE | 2019-08-26 19:24 | NUR ---
MS RN CLOSING NOTE PATIENT IN BED RESTING COMFORTABLY. PATIENT IN NO ACUTE DISTRESS. NO SOB NOTED. PATIENT BREATHING IS EVEN AND UNLABORED. PATIENT BED ALARM IS ON. SAFETY PRECAUTIONS IN PLACE. PATIENT KEPT CLEAN, DRY, AND COMFORTABLE THROUGHOUT SHIFT. PATIENT NEEDS AND CONCERNS ADDRESSED. WALKER AT THE BEDSIDE. PATIENT STATES NO PAIN AT THIS TIME. PATIENT BED IS LOCKED AND IN LOWEST POSITION. CALL LIGHT WITHIN REACH. WILL ENDORSE CARE TO PM SHIFT FOR BRUNO.
--- NOTE | 2019-08-26 19:30 | NUR ---
MS RN NOTES RECEIVED SITTING ON BEDSIDE CHAIR IN FRONT OF ROOM 310,ALERT,ORIENTED X3,LEFT EYE BLIND,SALINE LOCK LEFT AC INTACT AND PATENT,WITH RIGHT UPPER CHEST WALL HD CATH FOR HD TREATMENT.DENIES DISCOMFORTS AT THE MOMENT.ENCOURAGED TO CALL FOR ASSISTANCE AT ALL TIMES FOR SAFETY.AMBULATE WITH WALKER.FALL RISK,BED ON LOW POSITION AND LOCKED.BED ALARM,CALL LIGHT IN REACH,NEEDS ANTICIPATED.
[2019-08-26 20:00] VITALS: BP 161/83
[2019-08-26 20:29] LABS: APPEARANCE,URINE CLEAR (CLEAR); BILIRUBIN,URINE NEGATIVE (NEGATIVE); BLOOD, URINE NEGATIVE Ery/uL (NEGATIVE); COLOR,URINE YELLOW (YELLOW); KETONES,URINE NEGATIVE (NEGATIVE); LEUKOCYTE ESTERASE ,URINE SMALL (NEGATIVE); NITRITE, URINE NEGATIVE (NEGATIVE); PROTEIN,URINE 100 mg/dl (NEGATIVE); UGLUCOSE 100 MG/DL mg/dL (NEGATIVE); UROBILINOGEN,URINE 0.2 EU/dL (0.2)
[2019-08-26 21:30] LABS: BACTERIA,URINE None seen /HPF (None Seen); RBC,URINE 0-2 /HPF (0-2); SQUAMOUS EPITHELIAL CELL,UR Few /HPF (None Seen)
[2019-08-26] MEDS: SENNOSIDES 8.6 MG TABLET PO SCH (21:47)
[2019-08-26] MEDS: LATANOPROST EYE DROP 0.005% 2.5 ML BOTTLE OP SCH (21:48)
--- NOTE | 2019-08-26 22:00 | NUR ---
MS RN NOTES ACCU-CHECK BLOOD SUGAR CHECK 85,NO INSULIN COVERAGE.SNACKS PROVIDED AT BEDSIDE.
--- NOTE | 2019-08-27 01:00 | NUR ---
MS RN NOTES SOUND ASLEEP,KEPT WARM AND COMFORTABLE.
[2019-08-27] MEDS: HYDROCODONE/APAP 5/325MG 1 EACH TABLET PO PRN ×3 (04:22→16:50)
--- NOTE | 2019-08-27 04:22 | NUR ---
MS RN NOTES C/O PAIN ON LEFT EYE,MEDICATED WITH NORCO 5/325MG,1TAB PO ORDERED.
[2019-08-27] MEDS: BLOOD SUGAR DIAGNOSTIC 1 EACH STRIP IN SCH ×2 (06:06→12:27)
--- NOTE | 2019-08-27 06:10 | NUR ---
MS RN NOTES ACCU-CHECK BLOOD SUGAR CHECK 83,NO INSULIN COVERAGE
--- NOTE | 2019-08-27 06:25 | NUR ---
MS RN NOTES SLEPT WITH INTERVALS.STILL IN PAIN ON LEFT EYE,MANAGE WITH NORCO.BLOOD SUGAR WITH IN NORMAL LIMITS.FOR HEMODIALYSIS TODAY TILL CHEST X-RAY CLEARED PER DR KRAMER.IN NO ACUTE DISTRESS.WILL ENDORSE TO DAY NURSE FOR BRUNO.
--- NOTE | 2019-08-27 07:30 | NUR ---
MS/RN NOTE RECEIVED THE PATIENT IN BED. THE PATIENT ALERT AND ORIENTED X3. DENIES PAIN. IN ROOM AIR AND DENIES SOB. RESPIRATION REGULAR AND UNLABORED. LAC G 22 PATENT AND SALINE LOCKED. RIGHT UPPER CHEST HD CATH PRESENT AND NO BLEEDING NOTED. BED LOW AND LOCKED. SIDE RAILS UP X3. CALL LIGHT WITHIN REACH. WILL CONTINUE TO MONITOR.
[2019-08-27 08:00] VITALS: BP 131/62
[2019-08-27] MEDS: TIMOLOL MALEATE/PF 0.25% 1 DROP DROPERETTE EACHEYE SCH (09:00)
[2019-08-27] MEDS: CHOLECALCIFEROL 1,000 UNIT TABLET (VIT D3) PO SCH (09:01)
[2019-08-27] MEDS: LEVETIRACETAM (250 MG) 250 MG TABLET PO SCH (09:01)
[2019-08-27] MEDS: GABAPENTIN 100 MG CAPSULE PO SCH ×2 (09:01→16:41)
[2019-08-27] MEDS: ASPIRIN 81 MG TAB.CHEW PO SCH (09:01)
[2019-08-27] MEDS: PANTOPRAZOLE 40 MG TABLET.DR PO SCH (09:01)
[2019-08-27] MEDS: FOLIC ACID 1 MG TABLET PO SCH (09:01)
[2019-08-27] MEDS: hydrALAZINE HCL 50 MG TABLET PO SCH ×3 (09:02→16:41)
[2019-08-27] MEDS: CARVEDILOL 6.25 MG TABLET PO SCH (09:02)
[2019-08-27] MEDS: TIVICAY 50 MG PO SCH (09:02)
[2019-08-27] MEDS: HEPARIN SODIUM, PORCINE 5000 UNITS/1 ML VIAL SQ SCH (09:03)
[2019-08-27] MEDS: GLUCERNA SHAKE 237 ML CAN PO SCH (09:03)
[2019-08-27] MEDS: BRIMONIDINE TARTRATE OPHT SOLN 5 ML BOTTLE LEFTEYE SCH (09:03)
[2019-08-27] MEDS: PREZCOBIX PO SCH (09:03)
[2019-08-27] MEDS: MUPIROCIN OINT 2% 22 GM TUBE SCH (09:13)
--- NOTE | 2019-08-27 10:54 | NUR ---
MS/RN NOTE FOLLOW UP CALLS TO PHARMACY ARE MADE REGARDING DELIVERING OF TIMOPTIC. STILL WAITING.
[2019-08-27] MEDS: INSULIN REGULAR, HUMAN 100 UNIT/ML 3 ML VIAL SQ PRN (12:27)
[2019-08-27] MEDS ORDERED: ASPI-1169 PO (13:45)
[2019-08-27] MEDS ORDERED: HYDR-4077 PO (13:45)
[2019-08-27] MEDS ORDERED: CARV6.252 PO (13:45)
[2019-08-27 16:00] VITALS: BP 129/71
[2019-08-27 16:41] VITALS: BP 142/79
--- NOTE | 2019-08-27 17:37 | NUR ---
MS/RN NOTE THE PATIENT IS ALERT AND ORIENTED X3. VERBALIZED RELIEF FROM PAIN (GENERALIZED) AFTER TAKING NORCO. RATES PAIN 0/10. IN ROOM AIR AND SATURATION IS AT 96%. DENIES SOB. RESPIRATION REGULAR AND UNLABORED. THE PATIENT IN NO APPARENT DISTRESS. RAC G 222 IV LINE REMOVED WITH NO BLEEDING. RIGHT UPPER CHEST WALL HD CATH PRESENT. NO BLEEDING NOTED. DISCHARGE EDUCATION PROVIDED AND THE PATIENT VERBALIZED UNDERSTANDING. THE PATIENT`S HOME MEDICATION GIVEN TO THE AMBULANCE TO GIVE RECEIVING STAFF. MD PRESCRIPTION GIVEN AND THE COPIES SAVED IN THE CHART. THE PATIENT LEFT THE HOSPITAL IN STABLE CONDITION AND ON AN AMBULANCE.
== END 2019-08-27 17:15 | disposition home or self-care (01) | DRG 243 ==
LOC: ER 12:19 → TELE 17:28 → MED 08-25 11:13
PROVIDERS: ADMIT Nurse Practitioner Acute Care; ATTEND Student in an Organized Health Care Education/Training Program
PROC: 5A1D70Z Performance of Urinary Filtration, Intermittent, Less than 6 Hours Per Day (ICD-10-PCS; principal; 2019-08-23)
DX: K21.9 Gastro-esophageal reflux disease without esophagitis (principal); E11.22 Type 2 diabetes mellitus with diabetic chronic kidney disease; N18.6 End stage renal disease; Z99.2 Dependence on renal dialysis; I34.0 Nonrheumatic mitral (valve) insufficiency; I35.1 Nonrheumatic aortic (valve) insufficiency; I12.0 Hypertensive chronic kidney disease with stage 5 chronic kidney disease or end stage renal disease; I27.20 Pulmonary hypertension, unspecified; E44.1 Mild protein-calorie malnutrition; E88.09 Other disorders of plasma-protein metabolism, not elsewhere classified; G89.4 Chronic pain syndrome; Z68.22 Body mass index [BMI] 22.0-22.9, adult; F03.90 Unspecified dementia, unspecified severity, without behavioral disturbance, psychotic disturbance, mood disturbance, and anxiety; D64.9 Anemia, unspecified; H54.62 Unqualified visual loss, left eye, normal vision right eye
CPT/HCPCS: 36415; 71045-TC; 80048-TC; 80053-TC; 80061-TC; 80076-TC; 81000-TC; 82962-TC; 83735-TC; 83880; 84100-TC; 84132-TC; 84443-TC; 84484-TC; 85025-TC; 87081-TC; 90935-TC; 93307-TC; 97110-TC; 97116-TC; 97530-TC; 97535-TC; G0378; J1644; J1815; J3490; Q0163; U0003-CS

== ENCOUNTER 2019-09-12 12:15 | Emergency (ER) | payer OTHER ==
[~2019-09-12] VITALS: Ht 154.9 cm; Wt 59.4 kg
[~2019-09-12 12:15] MED LIST: ASPI-1169 PO; BRIM5DRO3 LEFTEYE; BUPR1FIL3 SL; CARV6.252 PO; CHOL200074 PO; DARU1TAB PO; DIPH50CA4 PO; DOLU50TA PO; FOLI0.8C PO; GABA-532 PO; HYDR-4077 PO; LATA2.5D7 OP; LEVE500T9 PO; METO-295 PO; SENN-175 PO; TIMO5DRO31 OP
--- NOTE | 2019-09-12 12:15 | NUR ---
PT BIBRA FROM [facility] C/O CHEST PAIN FOR 2 DAYS PRESSURE LIKE. PT IS AAOX3, NOT IN RESPIRATORY DISTRESS, HOOKED TO INSURANCE WRITER, KEPT RESTED AND COMFORTABLE. WILL CONTINUE TO MONITOR.
--- NOTE | 2019-09-12 12:39 | NUR ---
AT BEDSIDE FOR EVAL.
--- NOTE | 2019-09-12 12:40 | NUR ---
IV LINE ESTABLISHED BLOOD DRAWN AND SENT TO LAB.
--- NOTE | 2019-09-12 12:51 | NUR ---
MOVE SHEET SUBMITTED AND CALLED FOR TELE BED.
[2019-09-12 13:14] LABS: BASOPHILS % (AUTO) 0.9 % (0.0-2.0); EOSINOPHILS % (AUTO) 2.4 % (0.0-6.0); HEMATOCRIT 31 % (33-45); HEMOGLOBIN 9.4 g/dL (11.5-14.8); LYMPHOCYTES % (AUTO) 26.2 % (20.0-44.0); MEAN CORPUSCULAR HGB CONC 31 g/dl (31.0-36.0); MEAN CORPUSCULAR VOLUME 89 fL (82-100); MONOCYTES # (AUTO) 0.6 /CMM (0.1-1.30); MONOCYTES % (AUTO) 17.7 % (2.0-12.0); NEUTROPHILS # (AUTO) 1.9 /CMM (1.8-8.9); NEUTROPHILS % (AUTO) 52.8 % (43.0-81.0); PLATELET COUNT (AUTO) 185 /CMM (150-450); RED BLOOD CELL COUNT(AUTO) 3.42 MIL/uL (4.0-5.2); WHITE BLOOD COUNT (AUTO) 3.7 K/uL (4.3-11.0)
[2019-09-12 13:19] LABS: CALCIUM, SERUM 8.8 mg/dL (8.5-10.1); CARBON DIOXIDE 26 mmol/L (21-32); CHLORIDE 103 mmol/L (98-107); CREATININE 6.8 mg/dL (0.6-1.3); GLUCOSE 119 mg/dL (74-106); POTASSIUM 5.3 mmol/L (3.5-5.1); SODIUM SERUM 137 mmol/L (136-145); UREA NITROGEN, BLOOD 39 mg/dL (7-18)
[2019-09-12] MEDS ORDERED: MORPHINE SULFATE INJ 4 MG/ML DISP.SYRIN ONE (13:20)
[2019-09-12] MEDS ORDERED: ONDANSETRON HCL/PF 4 MG/2 ML VIAL ONE (13:21)
--- NOTE | 2019-09-12 13:25 | NUR ---
PANEL EDGE PAINTER AT BEDSIDE FOR XRAY.
[2019-09-12] MEDS ORDERED: NITROGLYCERIN 0.4 MG/TAB BOTTLE ONE (13:26)
[2019-09-12] MEDS ORDERED: NITROGLYCERIN 0.4 MG/TAB BOTTLE SL ONE (13:30)
[2019-09-12] MEDS ORDERED: MORPHINE SULFATE INJ 2 MG/ML DISP.SYRIN IV ONE (13:30)
[2019-09-12] MEDS ORDERED: ONDANSETRON HCL/PF 4 MG/2 ML VIAL IV ONE (13:30)
[2019-09-12 13:35] LABS: ALANINE AMINOTRANSFERASE 34 U/L (12-78); ALKALINE PHOSPHATASE 142 U/L (46-116); ASPARTATE AMINOTRANSFERASE 32 U/L (15-37); B-TYPE NATRIURETIC PEPTIDE 2650 PG/ML (0-125); BILIRUBIN,DIRECT 0.1 mg/dL (0.0-0.2); BILIRUBIN,TOTAL 0.2 mg/dL (0.2-1.0); TOTAL PROTEIN, SERUM 8.4 g/dL (6.4-8.2)
--- NOTE | 2019-09-12 13:48 | NUR ---
COVID SWAB DONE AND SENT TO LAB
[2019-09-12 13:56] LABS: EOSINOPHILS % (MANUAL) 2 % (0-4); LYMPHOCYTES % (MANUAL) 27 % (16-48); MONOCYTES % (MANUAL) 17 % (0-11.0); NEUTROPHILS % (MANUAL) 54 (42-76)
--- NOTE | 2019-09-12 14:10 | NUR ---
CLINICALS FAXED TO [facility]W OPERATOR.
[2019-09-12] MEDS ORDERED: HYDROCODONE/APAP 5/325MG 1 EACH TABLET ONE (14:53)
[2019-09-12] MEDS ORDERED: ASPIRIN 81 MG TAB.CHEW ONE (14:53)
[2019-09-12] MEDS ORDERED: ASPIRIN 81 MG TAB.CHEW PO ONE (15:00)
[2019-09-12] MEDS ORDERED: HYDROCODONE/APAP 5/325MG 1 EACH TABLET PO ONE (15:00)
[2019-09-12 17:32] VITALS: BP 144/82
--- NOTE | 2019-09-12 17:41 | NUR ---
TRANSPORT INFO: [facility] [phone], [id number] ETA 1900
--- NOTE | 2019-09-12 18:00 | NUR ---
REPORT GIVEN TO MATHEW AREVALO OF [facility] FOR [facility].
--- NOTE | 2019-09-12 18:51 | NUR ---
[facility] TO [facility]
== END 2019-09-12 18:57 | disposition short-term general hospital (02) ==
LOC: ER 12:18
DX: R07.9 Chest pain, unspecified (principal); I13.2 Hypertensive heart and chronic kidney disease with heart failure and with stage 5 chronic kidney disease, or end stage renal disease; E11.22 Type 2 diabetes mellitus with diabetic chronic kidney disease; I50.9 Heart failure, unspecified; N18.6 End stage renal disease; Z99.2 Dependence on renal dialysis; Z79.82 Long term (current) use of aspirin; G89.29 Other chronic pain; H40.9 Unspecified glaucoma; G40.909 Epilepsy, unspecified, not intractable, without status epilepticus; R94.31 Abnormal electrocardiogram [ECG] [EKG]; Z82.49 Family history of ischemic heart disease and other diseases of the circulatory system
CPT/HCPCS: 36415; 71045; 80048; 80076; 83880; 84484; 85025; 87426; 93005; 96374; 96375; 99285; J2270; J2405